=== PATIENT | male | born 1985 | race Caucasian/White ===

== ENCOUNTER 2024-04-26 16:22 | Emergency (ER) | payer OTHER | END 2024-04-26 18:30 | disposition home or self-care (01) | LOC: VM.ED 16:22 | DX: J02.9 Acute pharyngitis, unspecified (principal); Z77.098 Contact with and (suspected) exposure to other hazardous, chiefly nonmedicinal, chemicals; Z88.0 Allergy status to penicillin; Z79.51 Long term (current) use of inhaled steroids | CPT/HCPCS: 71045; 93005; 99283 ==